=== PATIENT | female | born 1955 | race Caucasian/White ===

== ENCOUNTER 2022-01-16 22:15 | Emergency (ER) | payer OTHER ==
[2022-01-16 22:21] VITALS: BP 132/112
[2022-01-16 22:32] VITALS: BP 115/56
[2022-01-16 22:35] LABS: HEMATOCRIT 33.6 % (37.0-47.0); HEMOGLOBIN 11.3 g/dl (12.0-16.0); MEAN CELL VOLUME 90.3 fL CALC (80.0-100.0); MEAN CORPUSCULAR HGB 30.4 pG CALC (26.0-32.0); MEAN CORPUSCULAR HGB CONC 33.6 g/dL CAL (32.0-36.0); NEUT# 3.63 thou/uL (2.00-7.15); RED BLOOD COUNT 3.72 mill/uL (4.20-5.60); RED CELL DISTRI WIDTH 13.5 % (11.5-15.5)
[2022-01-16 23:02] LABS: ALBUMIN 4.4 g/dL (3.2-5.0); ALKALINE PHOSPHATASE 62 u/l (38-126); ANION GAP 17 (6-22 (CALC)); BILIRUBIN, TOTAL 0.2 mg/dL (0.0-1.4); BUN 17 mg/dL (8-23); BUN/CREATININE RATIO 20 (12-20 (CALC)); CARBON DIOXIDE 19 mmol/l (22-30); CHLORIDE 108 mmol/l (95-108); CREATININE 0.8 mg/dL (0.5-1.0); GFR FOR AFR.AMER. > 60 ML/MIN (>=60 (CALC)); GFR OTHER RACES > 60 ML/MIN (>=60 (CALC)); POTASSIUM 3.7 mmol/l (3.5-5.1); SGOT/AST 26 u/l (9-36); SODIUM 140 mmol/l (137-146); TOTAL PROTEIN 7.2 g/dL (6.3-8.2)
[2022-01-16 23:08] LABS: URINE BILIRUBIN - DIPSTICK NEGATIVE (NEGATIVE); URINE BLOOD DIPSTICK NEGATIVE (NEGATIVE); URINE COLOR YELLOW; URINE GLUCOSE - DIPSTICK NEGATIVE (NEGATIVE); URINE KETONE NEGATIVE (NEGATIVE); URINE LEUK ESTERASE NEGATIVE (NEGATIVE); URINE NITRITE - DIPSTICK NEGATIVE (Negative); URINE PROTEIN - DIPSTICK NEGATIVE (NEG-TRACE); URINE UROBILINOGEN - DIPSTICK 0.2 E.U./dL (0.2)
[2022-01-16 23:11] VITALS: BP 103/50
[2022-01-16 23:16] VITALS: BP 99/55
[2022-01-16 23:26] LABS: ETHYL ALCOHOL 308 mg/dl (0-30)
[2022-01-16 23:30] VITALS: BP 109/63
[2022-01-16 23:46] VITALS: BP 126/72
[2022-01-17] VITALS (8 sets, daily range): BP systolic 69–133; BP diastolic 32–116
[2022-01-17] MEDS ORDERED: PROTONIX40 M2 PO (05:13)
== END 2022-01-17 07:59 | disposition home or self-care (01) | DRG 605 ==
LOC: ED 22:15
PROVIDERS: Family Medicine
PROC: 0HQ1XZZ Repair Face Skin, External Approach (ICD-10-PCS; principal; 2022-01-16)
DX: S80.212A Abrasion, left knee, initial encounter (principal); F10.129 Alcohol abuse with intoxication, unspecified; I10 Essential (primary) hypertension; W01.0XXA Fall on same level from slipping, tripping and stumbling without subsequent striking against object, initial encounter; Y90.8 Blood alcohol level of 240 mg/100 ml or more; S01.111A Laceration without foreign body of right eyelid and periocular area, initial encounter; W17.89XA Other fall from one level to another, initial encounter; Y93.89 Activity, other specified; Y92.230 Patient room in hospital as the place of occurrence of the external cause